=== PATIENT | male | born 1975 | race Two or more races ===

== ENCOUNTER 2017-11-06 19:17 | Emergency (ER) | payer MEDICAID ==
[~2017-11-06] VITALS: Ht 175.3 cm; Wt 106.1 kg
[2017-11-06] MEDS ORDERED: METF500T4 PO (20:10)
--- NOTE | 2017-11-06 23:40 | NUR ---
PT CALLED 3 TIMES AND NO ANSWER. PT WAS TRIAGED ONLY. LEFT W/O BEING SEEN PER MD.
== END 2017-11-06 23:35 | disposition left against medical advice (07) ==
LOC: ER 19:20
DX: Z53.21 Procedure and treatment not carried out due to patient leaving prior to being seen by health care provider (principal)
CPT/HCPCS: A4663

== ENCOUNTER 2017-11-07 15:58 | Emergency (ER) | payer MEDICAID ==
[~2017-11-07] VITALS: Ht 175.3 cm; Wt 106.1 kg
[~2017-11-07 15:58] MED LIST: METF500T4 PO
[2017-11-07 17:58] LABS: *BILIRUBIN,URIN NEGATIVE (NEGATIVE); *BLOOD, URINE NEGATIVE (NEGATIVE); *CLARITY,URINE CLEAR (CLEAR); *COLOR,URINE YELLOW (YELLOW); *KETONES,URINE NEGATIVE (NEGATIVE); *PROTEIN,URINE NEGATIVE (NEGATIVE); *UROBILINOGEN,URINE 0.2 E.U./dl (NORMAL); LEUKOCYTE ESTERASE ,URINE NEGATIVE (NEGATIVE); NITRITE, URINE NEGATIVE (NEGATIVE); PH,URINE 5.5 (5.0-8.0)
[2017-11-07 18:03] LABS: UGLUCOSE 2+ (NEGATIVE)
[2017-11-07 18:13] LABS: BACTERIA,URINE FEW /HPF (NONE SEEN); RBC,URINE 0-3 /HPF (0-3); SQUAMOUS EPITHELIAL CELL,UR FEW /HPF (NONE SEEN); WBC,URINE 0-3 /HPF (0-3)
[2017-11-07 19:19] LABS: CREATININE 0.9 mg/dL (0.6-1.3); POTASSIUM 4.1 mmol/L (3.5-5.1)
--- NOTE | 2017-11-07 19:35 | NUR ---
Patient discharged to home in stable conditon. Written and verbal after care instructions given. Patient verbalizes understanding of instructions.
== END 2017-11-07 19:40 | disposition home or self-care (01) ==
LOC: ER 15:59
DX: N48.1 Balanitis (principal); E11.65 Type 2 diabetes mellitus with hyperglycemia; F17.200 Nicotine dependence, unspecified, uncomplicated
CPT/HCPCS: 36415; 80048; 81001; 99284; A4663

== ENCOUNTER 2019-04-22 15:01 | Emergency (ER) | payer MEDICAID ==
[~2019-04-22] VITALS: Ht 175.3 cm; Wt 99.8 kg
[~2019-04-22 15:01] MED LIST changes: +METF-440 PO; -METF500T4 PO
--- NOTE | 2019-04-22 15:13 | NUR ---
DR Boyd at the bedside for MSE.
[2019-04-22] MEDS ORDERED: ONDANSETRON 4 MG/2 ML VIAL IM ONE (15:15)
[2019-04-22] MEDS ORDERED: DICYCLOMINE HCL LIQ 10 MG/5 ML UDC PO ONE (15:15)
[2019-04-22] MEDS ORDERED: HYDROMORPHONE 1 MG/1 ML DISP.SYRIN IM ONE (15:15)
[2019-04-22] MEDS ORDERED: MAG HYDROX/AL HYDROX/SIMETH 30 ML LIQUID UDC PO ONE (15:15)
[2019-04-22] MEDS ORDERED: MAG HYDROX/AL HYDROX/SIMETH 30 ML LIQUID UDC ONE (15:22)
[2019-04-22] MEDS ORDERED: HYDROMORPHONE 2 MG/1 ML DISP.SYRIN ONE (15:22)
[2019-04-22] MEDS ORDERED: ONDANSETRON 4 MG/2 ML VIAL ONE (15:22)
[2019-04-22] MEDS ORDERED: DICYCLOMINE HCL LIQ 10 MG/5 ML UDC ONE (15:22)
[2019-04-22 15:25] LABS: *BILIRUBIN,URIN NEGATIVE (NEGATIVE); *BLOOD, URINE NEGATIVE (NEGATIVE); *COLOR,URINE YELLOW (YELLOW); *KETONES,URINE NEGATIVE (NEGATIVE); *UROBILINOGEN,URINE 0.2 E.U./dl (NORMAL); LEUKOCYTE ESTERASE ,URINE NEGATIVE (NEGATIVE); NITRITE, URINE NEGATIVE (NEGATIVE); PH,URINE 5.5 (5.0-8.0); UGLUCOSE TRACE (NEGATIVE)
[2019-04-22 15:31] LABS: *CLARITY,URINE SLIGHTLY HAZY (CLEAR)
[2019-04-22 15:32] LABS: RBC,URINE 0-3 /HPF (0-3); SQUAMOUS EPITHELIAL CELL,UR MODERATE /HPF (NONE SEEN); WBC,URINE 0-3 /HPF (0-3)
[2019-04-22 15:34] LABS: MUCUS,URINE MANY /LPF (0-FEW)
--- NOTE | 2019-04-22 15:41 | NUR ---
Patient discharged to home in stable conditon. Written and verbal after care instructions given. Patient verbalizes understanding of instructions.
[2019-04-22 15:42] VITALS: BP 115/84
== END 2019-04-22 15:43 | disposition home or self-care (01) ==
LOC: ER 15:01
DX: M54.30 Sciatica, unspecified side (principal); R10.13 Epigastric pain; R30.0 Dysuria; R11.0 Nausea; E11.9 Type 2 diabetes mellitus without complications; F17.200 Nicotine dependence, unspecified, uncomplicated; Z79.899 Other long term (current) drug therapy
CPT/HCPCS: 81000; 81001; 96372 ×2; 99283; J1170; J2405; A4663

== ENCOUNTER 2020-04-17 19:04 | Emergency (ER) | payer MEDICAID ==
[~2020-04-17] VITALS: Ht 172.7 cm; Wt 108.9 kg
--- NOTE | 2020-04-17 20:40 | NUR ---
PATIENT WAS MSE BY DR SMALL IN ROOM 05A. PATIENT A & O X4.
[2020-04-17] MEDS ORDERED: HYDROCODONE/APAP 10-325 MG TABLET PO ONE (20:45)
[2020-04-17] MEDS ORDERED: HYDROCODONE/APAP 10-325 MG TABLET ONE (20:48)
[2020-04-17] MEDS: SODIUM BICARBONATE 4.2 % (NEUT) 5 ML VIAL TP ONE ×2 (20:50→21:45)
[2020-04-17] MEDS: LIDOCAINE HCL 2% 20 ML VIAL TP ONE ×3 (20:50→22:19)
[2020-04-17] MEDS ORDERED: LET TOPICAL SOLUTION 8 ML UDC TP ONE (21:00)
[2020-04-17] MEDS ORDERED: LET TOPICAL SOLUTION 8 ML UDC ONE (21:05)
--- NOTE | 2020-04-17 21:09 | NUR ---
PATIENT PAIN 06/19 DR SMALL MADE AWARE.
[2020-04-17] MEDS ORDERED: ONDANSETRON 4 MG/2 ML VIAL IM ONE (21:15)
[2020-04-17] MEDS ORDERED: HYDROMORPHONE 1 MG/1 ML DISP.SYRIN IM ONE (21:15)
[2020-04-17] MEDS ORDERED: HYDROMORPHONE 1 MG/1 ML DISP.SYRIN ONE (21:19)
[2020-04-17] MEDS ORDERED: ONDANSETRON 4 MG/2 ML VIAL ONE (21:19)
[2020-04-17] MEDS ORDERED: NEOMY/BACITRA/POLYMYXIN B OINT UD PACKET TP ONE ×2 (21:45→22:19)
[2020-04-17 22:15] VITALS: BP 115/78
--- NOTE | 2020-04-17 22:16 | NUR ---
Patient discharged to home in stable condition. Written and verbal after care instructions given. Patient verbalizes understanding of instructions. Stressed follow up or return to ER for worsening s/s. Adhesive bandage in place. No bleeding.
== END 2020-04-17 22:15 | disposition home or self-care (01) ==
LOC: ER 19:06
PROC: 0H91XZZ Drainage of Face Skin, External Approach (ICD-10-PCS; principal; 2020-04-17)
DX: L02.01 Cutaneous abscess of face (principal); E11.9 Type 2 diabetes mellitus without complications; Z79.84 Long term (current) use of oral hypoglycemic drugs
CPT/HCPCS: 10060; 82962; 96372 ×2; 99284; J1170; J2405; J3490; A4663

== ENCOUNTER 2021-02-01 15:00 | Emergency (ER) | payer MEDICAID ==
[~2021-02-01] VITALS: Ht 175.3 cm; Wt 106.6 kg
--- NOTE | 2021-02-01 15:38 | NUR ---
Dr Díaz at bedside for eval...
--- NOTE | 2021-02-01 15:39 | NUR ---
Urine in lab
[2021-02-01 16:01] LABS: *BILIRUBIN,URIN NEGATIVE (NEGATIVE); *BLOOD, URINE NEGATIVE (NEGATIVE); *COLOR,URINE YELLOW (YELLOW); *KETONES,URINE NEGATIVE (NEGATIVE); *UROBILINOGEN,URINE 0.2 E.U./dl (NORMAL); LEUKOCYTE ESTERASE ,URINE 1+ (NEGATIVE); NITRITE, URINE NEGATIVE (NEGATIVE); PH,URINE 5.5 (5.0-8.0); UGLUCOSE NEGATIVE (NEGATIVE)
[2021-02-01] MEDS ORDERED: NITR50CA PO (16:12)
[2021-02-01 16:14] LABS: *CLARITY,URINE HAZY (CLEAR)
[2021-02-01 16:15] LABS: BACTERIA,URINE FEW /HPF (NONE SEEN); RBC,URINE 0-3 /HPF (0-3); SQUAMOUS EPITHELIAL CELL,UR FEW /HPF (NONE SEEN); WBC,URINE 20-50 /HPF (0-3)
[2021-02-01] MEDS ORDERED: NITROFURANTOIN/NITROFURAN MAC 100 MG CAPSULE PO ONE ×2 (16:15→16:20)
--- NOTE | 2021-02-01 16:18 | NUR ---
DC, RX AND FOLLOW UP INSRUCTIONS GIVEN AND EXPLAINED TO PATIENT WHO STATES HE UNDERSTANDS ALL INSTRUCTIONS
== END 2021-02-01 16:19 | disposition home or self-care (01) ==
LOC: ER 15:00
DX: N39.0 Urinary tract infection, site not specified (principal); E11.65 Type 2 diabetes mellitus with hyperglycemia; Z79.84 Long term (current) use of oral hypoglycemic drugs; Z87.440 Personal history of urinary (tract) infections; F17.200 Nicotine dependence, unspecified, uncomplicated
CPT/HCPCS: 87086; A4663

== ENCOUNTER 2021-09-02 15:21 | Emergency (ER) | payer MEDICAID ==
[~2021-09-02] VITALS: Ht 175.3 cm; Wt 106.6 kg
[~2021-09-02 15:21] MED LIST changes: +NITR50CA PO
[2021-09-02] MEDS ORDERED: PHENAZOPYRIDINE HCL 100 MG TABLET PO ONE (16:15)
[2021-09-02 16:24] LABS: HEMATOCRIT 42.9 % (36.7-47.1); MEAN CORPUSCULAR HEMOGLOBIN 30.5 uug (23.8-33.4); PLATELET COUNT (AUTO) 312 K/uL (152-348)
[2021-09-02 16:28] LABS: POTASSIUM 4.3 mmol/L (3.5-5.1)
[2021-09-02 16:33] LABS: *BILIRUBIN,URIN NEGATIVE (NEGATIVE); *CLARITY,URINE CLOUDY (CLEAR); *COLOR,URINE YELLOW (YELLOW); *KETONES,URINE NEGATIVE (NEGATIVE); *UROBILINOGEN,URINE 0.2 E.U./dl (NORMAL); LEUKOCYTE ESTERASE ,URINE 2+ (NEGATIVE); NITRITE, URINE NEGATIVE (NEGATIVE); UGLUCOSE 1+ (NEGATIVE)
[2021-09-02 16:34] LABS: BILIRUBIN,DIRECT 0.1 mg/dL (0.0-0.2); BILIRUBIN,TOTAL 0.3 mg/dL (0.2-1.0); TOTAL PROTEIN, SERUM 7.6 g/dL (6.4-8.2)
[2021-09-02 16:35] LABS: *BLOOD, URINE TRACE INTACT (NEGATIVE)
[2021-09-02] MEDS ORDERED: PHENAZOPYRIDINE HCL 100 MG TABLET ONE (16:39)
[2021-09-02 16:49] LABS: SQUAMOUS EPITHELIAL CELL,UR FEW /HPF (NONE SEEN)
[2021-09-02 16:50] LABS: BACTERIA,URINE FEW /HPF (NONE SEEN)
[2021-09-02 16:51] LABS: WBC,URINE 20-50 /HPF (0-3)
[2021-09-02] MEDS ORDERED: CEphaleXIN 500 MG CAPSULE PO ONE (17:00)
[2021-09-02] MEDS ORDERED: ASPIRIN 325 MG TABLET PO ONE (17:45)
[2021-09-02] MEDS ORDERED: CEPH500C2 PO ×2 (17:46→17:48)
[2021-09-02] MEDS ORDERED: ASPI-612 PO ×2 (17:46→17:48)
[2021-09-02] MEDS ORDERED: PHEN-705 PO (17:46)
[2021-09-02] MEDS ORDERED: CEphaleXIN 500 MG CAPSULE ONE (17:47)
[2021-09-02] MEDS ORDERED: ASPIRIN 325 MG TABLET ONE (17:47)
[2021-09-02] MEDS ORDERED: NITR50CA PO (17:48)
--- NOTE | 2021-09-02 17:51 | NUR ---
Pt anxious to leave, signed out AMA
[2021-09-02] MEDS ORDERED: HYDR25SU33 RC (18:00)
== END 2021-09-02 17:53 | disposition left against medical advice (07) ==
LOC: ER 15:40
DX: R07.9 Chest pain, unspecified (principal); N39.0 Urinary tract infection, site not specified; R00.0 Tachycardia, unspecified; K64.9 Unspecified hemorrhoids; Z20.822 Contact with and (suspected) exposure to COVID-19
CPT/HCPCS: 36415; 70030-TC; 71045; 85025; 85730; 87086; 93005; A4663

== ENCOUNTER 2022-03-11 19:37 | Emergency (ER) | payer MEDICAID ==
[~2022-03-11] VITALS: Ht 175.3 cm; Wt 106.6 kg
[~2022-03-11 19:37] MED LIST changes: +ASPI-612 PO; +CEPH500C2 PO; +HYDR25SU33 RC; -NITR50CA PO; +PHEN-705 PO
--- NOTE | 2022-03-11 19:55 | NUR ---
Patient was called to be triaged but was not in the waiting room or outside of ER.
[2022-03-11 20:13] LABS: *BILIRUBIN,URIN NEGATIVE (NEGATIVE); *BLOOD, URINE 1+ (NEGATIVE); *CLARITY,URINE CLEAR (CLEAR); *COLOR,URINE YELLOW (YELLOW); *KETONES,URINE NEGATIVE (NEGATIVE); *UROBILINOGEN,URINE 0.2 E.U./dl (NORMAL); LEUKOCYTE ESTERASE ,URINE 1+ (NEGATIVE); NITRITE, URINE NEGATIVE (NEGATIVE); UGLUCOSE 3+ (NEGATIVE)
[2022-03-11 20:28] LABS: BACTERIA,URINE NONE SEEN /HPF (NONE SEEN); SQUAMOUS EPITHELIAL CELL,UR MODERATE /HPF (NONE SEEN)
--- NOTE | 2022-03-11 21:40 | NUR ---
pt in room 4a. denies pain at this time.
[2022-03-11] MEDS ORDERED: NYST15CR TP (22:35)
--- NOTE | 2022-03-11 22:40 | NUR ---
Patient discharged to home in stable condition. Written and verbal after care instructions given. Patient verbalizes understanding of instructions. Stressed follow up or return to ER for worsening s/s.
[2022-03-11 22:41] VITALS: BP 150/82
== END 2022-03-11 22:41 | disposition home or self-care (01) ==
LOC: ER 19:40
DX: N48.1 Balanitis (principal); E11.9 Type 2 diabetes mellitus without complications; F17.200 Nicotine dependence, unspecified, uncomplicated; E78.5 Hyperlipidemia, unspecified; Z79.82 Long term (current) use of aspirin; Z79.84 Long term (current) use of oral hypoglycemic drugs
CPT/HCPCS: 87086; A4663